=== PATIENT | female | born 1960 | race Caucasian/White ===

== ENCOUNTER → 2016-07-31 | Outpatient (CLI) | payer MEDICARE, OTHER ==
[2016-07-31 10:50] LABS: Basophils % (A) 0 %; CH 32.2; CHCM 32.9; Eosinophils # (A) 0.2 k/uL (0-0.7); Eosinophils % (A) 4 %; HCT 41.1 % (34.0-46.0); HDW 2.11; HGB 13.2 gm/dL (11.4-16.0); Luc # (Auto) 0.13; Luc % (Auto) 3; Lymphocytes # (A) 2.3 k/uL (1.0-4.8); Lymphocytes % (A) 46 %; MCH 31.6 pg (25.0-35.0); MCHC 32.1 g/dL (31.0-37.0); MCV 98.3 fL (80.0-100.0); Mean Platelet Volume 7.1; Monocytes # (A) 0.3 k/uL (0-1.0); Monocytes % (A) 5 %; Neutrophils # (A) 2.2 k/uL (1.3-7.7); Neutrophils % (A) 43 %; RBC 4.18 m/uL (3.80-5.40); RDW 12.6 % (11.5-15.5); WBC 5.1 k/uL (3.8-10.6); WBC (Perox) 5.44
[2016-07-31 11:29] LABS: Hemoglobin A1C 5.3 % (4.2-6.1)
[2016-07-31 12:00] LABS: Erythrocyte Sedimentation Rate 3 mm/hr (0-20)
[2016-07-31 12:22] LABS: ALT 27 U/L (9-52); AST 21 U/L (14-36); Alkaline Phosphatase 66 U/L (38-126); Anion Gap 10 mmol/L; Blood Urea Nitrogen 16 mg/dL (7-17); C Reactive Protein <5.0 mg/L (<10.0); Calcium 9.4 mg/dL (8.4-10.2); Carbon Dioxide 26 mmol/L (22-30); Chloride 106 mmol/L (98-107); Creatine Kinase 48 U/L (30-135); Glucose 83 mg/dL (74-99); Magnesium 2.2 mg/dL (1.6-2.3); Non-African American GFR(MDRD) >60 (>60 ml/min/1.73 sqM); Potassium 4.6 mmol/L (3.5-5.1); Sodium 142 mmol/L (137-145); Total Bilirubin 0.3 mg/dL (0.2-1.3); Total Protein 6.5 g/dL (6.3-8.2)
[2016-07-31 13:08] LABS: Vitamin B12 >1000 pg/mL (239-931)
[2016-08-02 14:17] LABS: Vitamin E (Alpha Tocopherol) 1394 ug/dL (500-1800)
[2016-08-09 04:37] LABS: Vitamin K 177 pg/mL (80-1160)
== END ==
LOC: LABWHC1 10:00
PROVIDERS: ATTEND Psychiatry & Neurology Pain Medicine
DX: M79.7 Fibromyalgia (principal); G89.29 Other chronic pain; Z79.899 Other long term (current) drug therapy
CPT/HCPCS: 36415; 80053; 82306; 82550; 82607; 83036; 83519; 83735; 84207; 84425; 84446; 84590; 84597; 85025; 85652; 86140

== ENCOUNTER → 2017-09-24 | Outpatient (CLI) | payer MEDICARE, OTHER ==
--- NOTE | 2017-09-24 14:32 | CT ---
EXAMINATION TYPE: CT sinus wo con DATE OF EXAM: 09/24/2017 COMPARISON: MRI brain May 02, 2017 HISTORY: sinus pain and pressure. CT DLP: 636.4 mGycm. Automated Exposure Control for Dose Reduction was Utilized. TECHNIQUE: CT scan of the sinuses is performed without contrast, axial images are obtained, coronal r eformatted images are also reviewed. FINDINGS: There is mild to moderate mucosal thickening in the left sphenoid sinus redemonstrated slig htly more prominent versus MRI. There is tiny mucous retention cyst or polyp in the lateral right sp henoid sinus axial image 28. There is mild to moderate mucosal thickening in ethmoid sinuses most prominent anterior aspect. There is mild mucosal thickening in inferior frontal sinuses redemonstrated. Some dependent fluid in the i nferior left frontal sinus is difficult to exclude on axial image 35 The ostiomeatal complex is paten t bilaterally on the coronal images. Nasal septum is deviated to right of midline inferiorly. Visualized portion of mastoid air cells show no abnormal opacification. The globes are intact bilate rally. Mild to moderate generalized frontal lobe atrophy is redemonstrated. IMPRESSION: Chronic paranasal sinus disease as detailed above acute component left frontal sinus [place] ot be excluded.
== END | disposition home or self-care (01) ==
LOC: RADCTMAIN 14:06
PROVIDERS: ATTEND Otolaryngology
DX: J32.9 Chronic sinusitis, unspecified (principal)
CPT/HCPCS: 70486

== ENCOUNTER → 2017-11-12 | Outpatient (CLI) | payer MEDICARE, OTHER ==
--- NOTE | 2017-11-12 13:34 | MR ---
EXAMINATION TYPE: MR shoulder RT wo con DATE OF EXAM: 11/12/2017 COMPARISON: NONE HISTORY: Pain in right shoulder TECHNIQUE: Multiplanar, multisequence imaging of the right shoulder is performed without contrast. FINDINGS: Distal clavicle demonstrates a small spur extending inferiorly which results in impingement supraspinatus tendon and muscle. Along the undersurface of the infraspinatus insertion is an area of abnormal signal measuring 1 cm ex tending a length of 3 mm and approximately 3.4 mm from the insertion compatible with a partial unders urface tear. No through thickness tear or retraction. Subscapularis and infraspinatus tendons appear intact. The bicipital tendon is well situated the bicipital groove. Bony labrum have a normal appearance. Pse udocystic change involving the humeral head can BE an indirect sign of impingement. The rotator cuff tendon within the rotator interval has a normal appearance. Suprascapular Notch has a normal appearance. IMPRESSION: 1. Partial undersurface tear posterior fibers supraspinatus tendon near the insertion measuring 1 cm in thickness extending a length of 3 mm. No retraction. 2. Impingement secondary to spur extending off the clavicle.
== END | disposition home or self-care (01) ==
LOC: RADMRIMAIN 11:16
PROVIDERS: ATTEND Psychiatry & Neurology Neurology
DX: M75.101 Unspecified rotator cuff tear or rupture of right shoulder, not specified as traumatic (principal); M75.41 Impingement syndrome of right shoulder; M77.8 Other enthesopathies, not elsewhere classified

== ENCOUNTER 2018-10-25 09:45 | Day surgery (SDC) | payer MEDICARE, OTHER ==
[2018-10-23 12:18] VITALS: BMI 26.2
--- NOTE | 2018-10-24 21:00 | P.GSHP ---
History of Present Illness H&P Date: 10/25/18 CHIEF COMPLAINT: Colon screen HISTORY OF PRESENT ILLNESS: The patient is a 58-year-old female who presents for colon screen. Lower endoscopy was offered for further evaluation and management. PAST MEDICAL HISTORY: Please see list. PAST SURGICAL HISTORY: Please see list. MEDICATIONS: Please see list. ALLERGIES: Please see list. SOCIAL HISTORY: No illicit drug use FAMILY HISTORY: No reports of Crohn disease or ulcerative colitis. REVIEW OF ORGAN SYSTEMS: CONSTITUTIONAL: No reports of fevers or chills. PHYSICAL EXAM: VITAL SIGNS: Stable GENERAL: Well-developed pleasant in no acute distress. HEENT: No scleral icterus. Extraocular movements grossly intact. Moist buccal mucosa. NECK: Supple without lymphadenopathy. CHEST: Unlabored respirations. Equal bilateral excursions. CARDIOVASCULAR: Regular rate and rhythm. Distal 2+ pulses. ABDOMEN: Soft, nontender, nondistended. MUSCULOSKELETAL: No clubbing, cyanosis, or edema. ASSESSMENT: 1. Colon screen. PLAN: 1. Recommend proceeding with a lower endoscopy Past Medical History Past Medical History: CVA/TIA, GERD/Reflux, Memory Impairment, Osteoarthritis (OA) Additional Past Medical History / Comment(s): cva approx 2011-weakness lt side- uses cane,neuropathy, SEIZURE APPROX 2011 History of Any Multi-Drug Resistant Organisms: None Reported Past Surgical History: Orthopedic Surgery, Tonsillectomy Additional Past Surgical History / Comment(s): LEFT SHOULDER. Past Anesthesia/Blood Transfusion Reactions: No Reported Reaction Smoking Status: Former smoker - Past Family History Mother Family Medical History: Cancer, Diabetes Mellitus Additional Family Medical History / Comment(s): melanoma, Father Additional Family Medical History / Comment(s): alcohol abuse Medications and Allergies Home Medications Medication Instructions Recorded Confirmed Type Aspirin 81 mg PO DAILY 02/21/16 10/23/18 History Cyanocobalamin [Vitamin B-12] 120 mcg PO DAILY 02/21/16 10/23/18 History Divalproex [Depakote] 500 mg PO TID 02/21/16 10/23/18 History Meloxicam 15 mg PO DAILY 02/21/16 10/23/18 History Pregabalin [Lyrica] 75 mg PO TID 02/21/16 10/23/18 History oxyCODONE-APAP 10-325MG [Percocet 1 tab PO BID PRN 02/21/16 10/23/18 History 10-325 mg] FLUoxetine HCL [PROzac] 40 mg PO HS 10/23/18 10/24/18 History Allergies Allergy/AdvReac Type Severity Reaction Status Date / Time No Known Allergies Allergy Unverified 10/23/18 12:07
[~2018-10-25 09:45] MED LIST: LACTATED RINGERS 1,000 ML IV SCH
[2018-10-25 09:57] VITALS: TEMP 96.9
[2018-10-25] MEDS ORDERED: LACTATED RINGERS 1,000 ML IV ONE (09:57)
[2018-10-25] MEDS ORDERED: LIDOCAINE 1% 20 ML VIAL (10MG/ML) FOR IV START INTRADERMA ONE (09:57)
[2018-10-25] MEDS ORDERED: fentaNYL (PF) 50 MCG/ML 2 ML AMP ONE (10:30)
[2018-10-25] MEDS ORDERED: PROPOFOL 10 MG/ML 20 ML VIAL IV ONE (10:30)
[2018-10-25] MEDS ORDERED: MIDAZOLAM 2 MG/2 ML VIAL ONE (10:30)
--- NOTE | 2018-10-25 10:54 | P.PCN ---
Date of Procedure: 10/25/18 Description of Procedure: History of polyps. Last colonoscopy 5 years ago. Negative colonoscopy. Repeat colonoscopy 5 years, 2023 PREOPERATIVE DIAGNOSIS: Personal history of colon polyps Colonoscopy screening. POSTOPERATIVE DIAGNOSIS: Personal history of colon polyps Colonoscopy screening. OPERATION: Colonoscopy to the ileocecal valve and appendiceal orifice. SURGEON: Kenia Salazar MD. ANESTHESIA: MAC. INDICATIONS: The patient is a [id number] female who presents for colonoscopy screening. Last colonoscopy over 5 years ago. Benefits and risks were described and informed consent was obtained. DESCRIPTION OF PROCEDURE: The patient had undergone Suprep. She had been brought into the operating room and laid in the left lateral decubitus position. After adequate intravenous sedation, the rectum was examined with 2% lidocaine jelly. No external hemorrhoids were encountered. The rectal tone was within normal limits. No lesions were palpated in the rectal vault. An Olympus colonoscope was advanced until the ileocecal valve and appendiceal orifice were clearly viewed. The prep was good with clear visualization of the mucosal folds. The scope was removed with visualization of each mucosal fold. No large sattered diverticulosis was encountered. No colonic polyps were found. No evidence of focal colitis was found. Retroflexion of the scope demonstrated no internal hemorrhoids. The colon was desufflated. The patient had tolerated the procedure well. Withdrawal time was over 6 minutes. FINDINGS: Aronchick preparation quality scale 2 (1-5) No internal hemorrhoids No external prolapsed hemorrhoids. No arteriovenous malformations. No adenomatous polyps. No focal colitis. RECOMMENDATIONS: Lower endoscopy in 5 2023. Plan - Discharge Summary Discharge Rx Participant: No New Discharge Prescriptions: No Action Cyanocobalamin [Vitamin B-12] 120 mcg PO DAILY Divalproex [Depakote] 500 mg PO TID Meloxicam 15 mg PO DAILY Pregabalin [Lyrica] 75 mg PO TID Aspirin 81 mg PO DAILY oxyCODONE-APAP 10-325MG [Percocet 10-325 mg] 1 tab PO BID PRN PRN Reason: Pain FLUoxetine HCL [PROzac] 40 mg PO HS Discharge Medication List Aspirin 81 mg PO DAILY 02/21/16 [History] Cyanocobalamin [Vitamin B-12] 120 mcg PO DAILY 02/21/16 [History] Divalproex [Depakote] 500 mg PO TID 02/21/16 [History] Meloxicam 15 mg PO DAILY 02/21/16 [History] Pregabalin [Lyrica] 75 mg PO TID 02/21/16 [History] oxyCODONE-APAP 10-325MG [Percocet 10-325 mg] 1 tab PO BID PRN 02/21/16 [History] FLUoxetine HCL [PROzac] 40 mg PO HS 10/23/18 [History] Follow up Appointment(s)/Referral(s): Kenia Salazar MD [STAFF PHYSICIAN] - As Needed Patient Instructions/Handouts: *Sur[facility] - (Anesthesia) Endoscopy Discharge Instructions, Colonoscopy (DC) Activity/Diet/Wound Care/Special Instructions: Repeat colonoscopy 5 years, 2023 Discharge Disposition: HOME SELF-CARE
[2018-10-25 11:53] VITALS: BP 118/66; PULSE 79; RESP 18
== END 2018-10-25 11:45 | disposition home or self-care (01) ==
LOC: ORWHC2ENDO 09:45
PROVIDERS: ATTEND Surgery Plastic and Reconstructive Surgery
DX: Z12.11 Encounter for screening for malignant neoplasm of colon (principal); Z86.010 Personal history of colon polyps; Z79.82 Long term (current) use of aspirin; I69.354 Hemiplegia and hemiparesis following cerebral infarction affecting left non-dominant side; G62.9 Polyneuropathy, unspecified; Z87.891 Personal history of nicotine dependence; Z79.891 Long term (current) use of opiate analgesic; Z79.899 Other long term (current) drug therapy; Z83.3 Family history of diabetes mellitus; Z80.8 Family history of malignant neoplasm of other organs or systems; Z81.1 Family history of alcohol abuse and dependence
CPT/HCPCS: J2250; J3010; J2704; G0105; 45378